=== PATIENT | male | born 1965 | race African-American/Black ===

== ENCOUNTER 2020-06-18 15:24 | Emergency (ER) ==
[2020-06-18 16:41] LABS: #Eosinphils 0.2 thou/uL (0.0-0.7); #Monocytes 0.7 thou/uL (0.11-0.59); #Neutrophils 5.6 thou/uL (1.40-6.50); %Basophils 0.4 % (0.0-1.0); %Lymphocytes 13.4 % (21.0-51.0); %Monocytes 9.1 % (0.0-10.0); %Neutrophils 75.1 % (42.0-75.0); Hemoglobin 11.5 g/dL (14.0-18.0); Mean Corpuscular HGB CONC 32.9 g/dL (32.0-36.0); Mean Corpuscular Hemoglobin 25.1 pg (27.0-31.0); Mean Corpuscular Volume 76.3 fL (78.0-98.0); Platelet Count 218 thou/uL (130-400); RBC Distribution Width 13.3 % (11.5-14.5); Red Blood Cell (RBC) Count 4.57 mill/uL (4.70-6.10); White Blood Cell (WBC) Count 7.5 thou/uL (4.8-10.8)
[2020-06-18 17:08] LABS: ALT (SGPT) 34 U/L (8-55); AST (SGOT) 42 U/L (5-34); Albumin 4.1 g/dL (3.5-5.0); Alkaline Phosphatase 79 U/L (40-110); Anion Gap 15 mmol/L (10-20); BUN (Urea Nitrogen) 9 mg/dL (8.4-25.7); Bilirubin, Total 0.7 mg/dL (0.2-1.2); CK (CPK) 196 U/L (30-200); Calc. Creatinine Clearance 0 mL/min (70-130); Calcium 10.1 mg/dL (7.8-10.44); Carbon Dioxide 24 mmol/L (22-29); Chloride 96 mmol/L (98-107); Globulin 3.6 g/dL (2.4-3.5); Glucose 140 mg/dL (70-105); Magnesium 1.6 mg/dL (1.6-2.6); Protein, Total 7.7 g/dL (6.0-8.3); Sodium 132 mmol/L (136-145)
[2020-06-18 18:36] LABS: Bilirubin Negative (Negative); Blood, Urine Negative (Negative); Clarity Clear (Clear); Glucose, Urine (Dipstick) Normal (Negative); Ketone, Urine Negative (Negative); Leukocyte Negative Leu/uL (Negative); Nitrite Negative (Negative); Protein, Urine (Dipstick) 10 mg/dL (Neg-Trace); Specific Gravity, Urine 1.011 (1.002-1.036); Urobilinogen Normal mg/dL (Less than 2); pH, Urine 6.5 (5.0-9.0)
[2020-06-18] MEDS ORDERED: Potassium Chloride 20 MEQ TAB ONE (18:48)
[2020-06-18] MEDS ORDERED: Boostrix 0.5 ML (Tdap) VIAL ONE (19:52)
== END 2020-06-18 19:00 | disposition left against medical advice (07) ==
LOC: ERS 15:24
DX: R56.9 Unspecified convulsions (principal); E87.6 Hypokalemia; R94.31 Abnormal electrocardiogram [ECG] [EKG]; I10 Essential (primary) hypertension; F17.210 Nicotine dependence, cigarettes, uncomplicated
CPT/HCPCS: 36415; 80053; 81003; 82550; 83735; 85025; 90715; 93005

== ENCOUNTER 2020-06-18 19:28 | Emergency (ER) | payer SELFPAY ==
[2020-06-18] MEDS ORDERED: levETIRAcetam 500 MG TAB PO SCH (20:15)
== END 2020-06-18 21:38 | disposition home or self-care (01) ==
LOC: ERS 19:28
DX: G40.409 Other generalized epilepsy and epileptic syndromes, not intractable, without status epilepticus (principal); I10 Essential (primary) hypertension; F17.210 Nicotine dependence, cigarettes, uncomplicated
CPT/HCPCS: 70450; 90471